=== PATIENT | female | born 1975 | race Caucasian/White ===

== ENCOUNTER 2021-09-23 22:39 | Emergency (ER) | payer BC ==
[2021-09-23 23:44] LABS: HEMOGLOBIN 14.9 gm/dl (12.3-15.3)
[2021-09-24 00:11] LABS: BUN/CREATININE RATIO 14 (0-10)
[2021-09-24] MEDS ORDERED: VALACYCLOVIR1000 MG PO (02:25)
[2021-09-24] MEDS ORDERED: PREDNISONE 20 M20 MG PO (02:25)
== END 2021-09-24 02:39 | disposition home or self-care (01) ==
LOC: ER1 22:39
PROVIDERS: Physician Assistant
DX: G51.0 Bell's palsy (principal)
CPT/HCPCS: 70450; 70496; 70498; 71045; 80053; 82550; 82553; 84484; 85025; 85610; 85730; 99284; Q9967